=== PATIENT | male | born 1960 | race Caucasian/White ===

== ENCOUNTER 2017-02-14 04:13 | Inpatient (IN) | payer OTHER ==
[2017-02-14] MEDS: HYDROmorphone 2 MG/ML Syringe IVPUSH PRN ×5 (04:28→23:58)
[2017-02-14] MEDS ORDERED: Ondansetron 4 MG/2 ML SDV IVPUSH ONE (04:32)
[2017-02-14] MEDS ORDERED: Ondansetron 4 MG/2 ML SDV ONE (04:33)
[2017-02-14] MEDS: Sodium Chloride 0.9% 1,000 ML IV SCH ×3 (04:35→18:49)
--- NOTE | 2017-02-14 04:36 | EDM.PDOC ---
ED HPI GENERAL MEDICAL PROBLEM - General Chief Complaint: Back Pain or Injury Stated Complaint: DEHYDRATION Time Seen by Provider: 02/14/17 04:28 Source of Information: Reports: Patient, RN - History of Present Illness INITIAL COMMENTS - FREE TEXT/NARRATIVE: He presents saying that he has severe back cramps. He states that it has been going on x 16 hours. He states " it is because I have been out in the sun all day and I am dehydrated". He states that he is short of breath mainly because his back hurts so much that it hurts to breath. Middle Back/More Right Sided Pain Score (Numeric/FACES): 8 - Related Data Allergies Allergy/AdvReac Type Severity Reaction Status Date / Time No Known Allergies Allergy Verified 02/14/17 04:39 Home Meds: Home Meds . [No Known Home Meds] 07/05/14 [History] Past Medical History - Past Health History Medical/Surgical History: Denies Medical/Surgical History Social & Family History - Tobacco Use Years of Tobacco use: 30 - Alcohol Use Days Per Week of Alcohol Use: 0 - Recreational Drug Use Recreational Drug Use: No ED ROS GENERAL - Review of Systems Review Of Systems: See Below Respiratory: Reports: Shortness of Breath. Denies: Cough Cardiovascular: Denies: Chest Pain GI/Abdominal: Denies: Abdominal Pain ED EXAM, GENERAL - Physical Exam Exam: See Below Exam Limited By: Other (slightly agitated; restless; distressed) General Appearance: Alert, Moderate Distress Nose: Normal Inspection Throat/Mouth: Normal Lips Head: Atraumatic Respiratory/Chest: No Respiratory Distress, Lungs Clear, Normal Breath Sounds, Other (decreased tidal volume; splinting) Cardiovascular: Regular Rate, Rhythm, No Murmur GI/Abdominal: Soft, Guarding. No: Rebound, Tender Rectal (Males) Exam: Deferred Neurological: Alert Psychiatric: No: Tearful Course - Vital Signs Last Recorded V/S: Last Vital Signs Temp 95.4 F 02/14/17 06:58 Pulse 108 H 02/14/17 06:58 Resp 18 02/14/17 06:58 BP 122/80 02/14/17 06:58 Pulse Ox 94 L 02/14/17 06:58 - Orders/Labs/Meds Orders: Active Orders 24 hr Category Date Time Status EKG Documentation Completion [RC] STAT Care 02/14/17 04:27 Active Ang Abdomen [CT] Stat Exams 02/14/17 04:27 Taken Ang Chest [CT] Stat Exams 02/14/17 04:27 Taken CXR [Chest 1V Frontal] [CR] Stat Exams 02/14/17 04:26 Taken CULTURE BLOOD [BC] Stat Lab 02/14/17 05:30 Received CULTURE BLOOD [BC] Stat Lab 02/14/17 05:34 Received CULTURE URINE [RM] Stat Lab 02/14/17 06:07 Received HYDROmorphone [Dilaudid] Med 02/14/17 04:24 Active 2 mg IVPUSH Q2H PRN Sodium Chloride 0.9% [Normal Saline] 1,000 ml Med 02/14/17 04:30 Active IV ASDIRECTED Sodium Chloride 0.9% [Normal Saline] 1,000 ml Med 02/14/17 04:45 Active IV ASDIRECTED Blood Culture x2 Reflex Set [OM.PC] Stat Oth 02/14/17 05:10 Ordered Medication Orders Hydromorphone HCl (Dilaudid) 2 mg IVPUSH Q2H PRN PRN Reason: Pain Last Admin: 02/14/17 04:28 Dose: 2 mg Sodium Chloride (Normal Saline) 1,000 mls @ 150 mls/hr IV ASDIRECTED LACI Last Admin: 02/14/17 04:35 Dose: 150 mls/hr Sodium Chloride (Normal Saline) 1,000 mls @ 999 mls/hr IV ASDIRECTED LACI Last Admin: 02/14/17 04:30 Dose: 999 mls/hr Labs: Laboratory Tests 02/14/17 02/14/17 02/14/17 Range/Units 04:20 04:20 04:20 WBC 31.29 H (4.0-11.0) K/uL RBC 5.33 (4.50-5.90) M/uL Hgb 16.3 (13.0-17.0) g/dL Hct 48.1 (38.0-50.0) % MCV 90.2 (80.0-98.0) fL MCH 30.6 (27.0-32.0) pg MCHC 33.9 (31.0-37.0) g/dL RDW Std Deviation 43.5 (28.0-62.0) fl RDW Coeff of Naga 13 (11.0-15.0) % Plt Count 211 (150-400) K/uL MPV 10.40 (7.40-12.00) fL Add Manual Diff YES Neutrophils % (Manual) 78 (48.0-80.0) % Band Neutrophils % 3 % Lymphocytes % (Manual) 11 L (16.0-40.0) % Monocytes % (Manual) 8 (0.0-15.0) % Nucleated RBC % 0.0 /100WBC Absolute Seg Neuts 24.4 Band Neutrophils # 0.9 Lymphocytes # (Manual) 3.4 Monocytes # (Manual) 2.5 Nucleated RBCs # 0 K/uL D-Dimer, Quantitative 0.82 H (0.0-0.52) mg/LFEU Sodium 142 (136-146) mmol/L Potassium 3.5 (3.5-5.1) mmol/L Chloride 106 (98-110) mmol/L Carbon Dioxide 22 (21-31) mmol/L BUN 12 (6.0-23.0) mg/dL Creatinine 1.4 (0.6-1.5) mg/dL Est Cr Clr Drug Dosing TNP Estimated GFR (MDRD) 52.4 ml/min Glucose 169 H (60-110) mg/dL Calcium 9.6 (8.8-10.8) mg/dL Magnesium 1.5 (1.5-2.3) mEq/L Total Bilirubin 1.1 (0.1-1.5) mg/dL AST 22 (5-40) IU/L ALT 24 (8-54) IU/L Alkaline Phosphatase 72 (40-150) Creatine Kinase (9-236) IU/L Troponin I (0.0-0.29) NG/ML B-Natriuretic Peptide (<100) PG/ML Total Protein 7.6 (6.0-8.0) g/dL Albumin 4.0 (3.5-5.0) g/dL Globulin 3.6 H (2.0-3.5) g/dL Albumin/Globulin Ratio 1.1 L (1.3-2.8) Lipase 15 (7-80) U/L Urine Color Urine Appearance Urine pH (5.0-8.0) Ur Specific Maxwell (1.001-1.035) Urine Protein (NEGATIVE) mg/dL Urine Glucose (UA) (NEGATIVE) mg/dL Urine Ketones (NEGATIVE) mg/dL Urine Occult Blood (NEGATIVE) Urine Nitrite (NEGATIVE) Urine Bilirubin (NEGATIVE) Urine Urobilinogen (<2.0) EU/dL Ur Leukocyte Esterase (NEGATIVE) Urine RBC (0-2/HPF) Urine WBC (0-5/HPF) Ur Epithelial Cells (NONE-FEW) Urine Bacteria (NEGATIVE) Urine Mucus (NONE-MOD) Urine Opiates Screen (NEGATIVE) Ur Oxycodone Screen (NEGATIVE) Urine Methadone Screen (NEGATIVE) Ur Barbiturates Screen (NEGATIVE) Ur Phencyclidine Scrn (NEGATIVE) Ur Amphetamine Screen (NEGATIVE) U Methamphetamines Scrn (NEGATIVE) U Benzodiazepines Scrn (NEGATIVE) U Cocaine Metab Screen (NEGATIVE) U Marijuana (THC) Screen (NEGATIVE) 02/14/17 02/14/17 02/14/17 Range/Units 04:20 04:20 04:20 WBC (4.0-11.0) K/uL RBC (4.50-5.90) M/uL Hgb (13.0-17.0) g/dL Hct (38.0-50.0) % MCV (80.0-98.0) fL MCH (27.0-32.0) pg MCHC (31.0-37.0) g/dL RDW Std Deviation (28.0-62.0) fl RDW Coeff of Naga (11.0-15.0) % Plt Count (150-400) K/uL MPV (7.40-12.00) fL Add Manual Diff Neutrophils % (Manual) (48.0-80.0) % Band Neutrophils % % Lymphocytes % (Manual) (16.0-40.0) % Monocytes % (Manual) (0.0-15.0) % Nucleated RBC % /100WBC Absolute Seg Neuts Band Neutrophils # Lymphocytes # (Manual) Monocytes # (Manual) Nucleated RBCs # K/uL D-Dimer, Quantitative (0.0-0.52) mg/LFEU Sodium (136-146) mmol/L Potassium (3.5-5.1) mmol/L Chloride (98-110) mmol/L Carbon Dioxide (21-31) mmol/L BUN (6.0-23.0) mg/dL Creatinine (0.6-1.5) mg/dL Est Cr Clr Drug Dosing Estimated GFR (MDRD) ml/min Glucose (60-110) mg/dL Calcium (8.8-10.8) mg/dL Magnesium (1.5-2.3) mEq/L Total Bilirubin (0.1-1.5) mg/dL AST (5-40) IU/L ALT (8-54) IU/L Alkaline Phosphatase (40-150) Creatine Kinase 168 (9-236) IU/L Troponin I < 0.10 (0.0-0.29) NG/ML B-Natriuretic Peptide 82 (<100) PG/ML Total Protein (6.0-8.0) g/dL Albumin (3.5-5.0) g/dL Globulin (2.0-3.5) g/dL Albumin/Globulin Ratio (1.3-2.8) Lipase (7-80) U/L Urine Color Urine Appearance Urine pH (5.0-8.0) Ur Specific Maxwell (1.001-1.035) Urine Protein (NEGATIVE) mg/dL Urine Glucose (UA) (NEGATIVE) mg/dL Urine Ketones (NEGATIVE) mg/dL Urine Occult Blood (NEGATIVE) Urine Nitrite (NEGATIVE) Urine Bilirubin (NEGATIVE) Urine Urobilinogen (<2.0) EU/dL Ur Leukocyte Esterase (NEGATIVE) Urine RBC (0-2/HPF) Urine WBC (0-5/HPF) Ur Epithelial Cells (NONE-FEW) Urine Bacteria (NEGATIVE) Urine Mucus (NONE-MOD) Urine Opiates Screen (NEGATIVE) Ur Oxycodone Screen (NEGATIVE) Urine Methadone Screen (NEGATIVE) Ur Barbiturates Screen (NEGATIVE) Ur Phencyclidine Scrn (NEGATIVE) Ur Amphetamine Screen (NEGATIVE) U Methamphetamines Scrn (NEGATIVE) U Benzodiazepines Scrn (NEGATIVE) U Cocaine Metab Screen (NEGATIVE) U Marijuana (THC) Screen (NEGATIVE) 02/14/17 02/14/17 Range/Units 06:07 06:07 WBC (4.0-11.0) K/uL RBC (4.50-5.90) M/uL Hgb (13.0-17.0) g/dL Hct (38.0-50.0) % MCV (80.0-98.0) fL MCH (27.0-32.0) pg MCHC (31.0-37.0) g/dL RDW Std Deviation (28.0-62.0) fl RDW Coeff of Naga (11.0-15.0) % Plt Count (150-400) K/uL MPV (7.40-12.00) fL Add Manual Diff Neutrophils % (Manual) (48.0-80.0) % Band Neutrophils % % Lymphocytes % (Manual) (16.0-40.0) % Monocytes % (Manual) (0.0-15.0) % Nucleated RBC % /100WBC Absolute Seg Neuts Band Neutrophils # Lymphocytes # (Manual) Monocytes # (Manual) Nucleated RBCs # K/uL D-Dimer, Quantitative (0.0-0.52) mg/LFEU Sodium (136-146) mmol/L Potassium (3.5-5.1) mmol/L Chloride (98-110) mmol/L Carbon Dioxide (21-31) mmol/L BUN (6.0-23.0) mg/dL Creatinine (0.6-1.5) mg/dL Est Cr Clr Drug Dosing Estimated GFR (MDRD) ml/min Glucose (60-110) mg/dL Calcium (8.8-10.8) mg/dL Magnesium (1.5-2.3) mEq/L Total Bilirubin (0.1-1.5) mg/dL AST (5-40) IU/L ALT (8-54) IU/L Alkaline Phosphatase (40-150) Creatine Kinase (9-236) IU/L Troponin I (0.0-0.29) NG/ML B-Natriuretic Peptide (<100) PG/ML Total Protein (6.0-8.0) g/dL Albumin (3.5-5.0) g/dL Globulin (2.0-3.5) g/dL Albumin/Globulin Ratio (1.3-2.8) Lipase (7-80) U/L Urine Color YELLOW Urine Appearance CLEAR Urine pH 6.0 (5.0-8.0) Ur Specific Maxwell 1.020 (1.001-1.035) Urine Protein 30 (NEGATIVE) mg/dL Urine Glucose (UA) NEGATIVE (NEGATIVE) mg/dL Urine Ketones 15 H (NEGATIVE) mg/dL Urine Occult Blood NEGATIVE (NEGATIVE) Urine Nitrite NEGATIVE (NEGATIVE) Urine Bilirubin NEGATIVE (NEGATIVE) Urine Urobilinogen 1.0 (<2.0) EU/dL Ur Leukocyte Esterase NEGATIVE (NEGATIVE) Urine RBC NONE SEEN (0-2/HPF) Urine WBC 0-3 (0-5/HPF) Ur Epithelial Cells RARE (NONE-FEW) Urine Bacteria RARE (NEGATIVE) Urine Mucus LIGHT (NONE-MOD) Urine Opiates Screen NEGATIVE (NEGATIVE) Ur Oxycodone Screen NEGATIVE (NEGATIVE) Urine Methadone Screen NEGATIVE (NEGATIVE) Ur Barbiturates Screen NEGATIVE (NEGATIVE) Ur Phencyclidine Scrn NEGATIVE (NEGATIVE) Ur Amphetamine Screen NEGATIVE (NEGATIVE) U Methamphetamines Scrn NEGATIVE (NEGATIVE) U Benzodiazepines Scrn NEGATIVE (NEGATIVE) U Cocaine Metab Screen NEGATIVE (NEGATIVE) U Marijuana (THC) Screen NEGATIVE (NEGATIVE) Meds: Medications Generic Name Dose Route Start Last Admin Trade Name Freq PRN Reason Stop Dose Admin Hydromorphone HCl 2 mg 02/14/17 04:24 02/14/17 04:28 Dilaudid IVPUSH 2 mg Q2H PRN Administration Pain Sodium Chloride 1,000 mls @ 150 mls/hr 02/14/17 04:30 02/14/17 04:35 Normal Saline IV 150 mls/hr ASDIRECTED LACI Administration Sodium Chloride 1,000 mls @ 999 mls/hr 02/14/17 04:45 02/14/17 04:30 Normal Saline IV 999 mls/hr ASDIRECTED LACI Administration Discontinued Medications Generic Name Dose Route Start Last Admin Trade Name Freq PRN Reason Stop Dose Admin Piperacillin Sod/Tazobactam 50 mls @ 100 mls/hr 02/14/17 05:10 02/14/17 06:04 Sod 3.375 gm/ Sodium Chloride IV 02/14/17 05:39 100 mls/hr ONETIME ONE Administration Iopamidol 100 ml 02/14/17 06:00 02/14/17 06:01 Isovue-300 (61%) IVPUSH 02/14/17 06:01 100 ml ONETIME ONE Administration Ondansetron HCl 4 mg 02/14/17 04:32 02/14/17 04:34 Zofran IVPUSH 02/14/17 04:33 4 mg ONETIME ONE Administration Ondansetron HCl Confirm 02/14/17 04:33 02/14/17 05:04 Zofran Administered 02/14/17 04:34 Not Given Dose 4 mg .ROUTE .STK-MED ONE Departure - Departure Time of Disposition: 07:28 Disposition: Admitted As Inpatient 66 Condition: Fair Clinical Impression: Sepsis, Pneumonia - Discharge Information - My Orders Last 24 Hours: My Active Orders 02/14/17 04:24 HYDROmorphone [Dilaudid] 2 mg IVPUSH Q2H PRN 02/14/17 04:26 CXR [Chest 1V Frontal] [CR] Stat 02/14/17 04:27 EKG Documentation Completion [RC] STAT Ang Abdomen [CT] Stat Ang Chest [CT] Stat 02/14/17 04:30 Sodium Chloride 0.9% [Normal Saline] 1,000 ml IV ASDIRECTED 02/14/17 04:45 Sodium Chloride 0.9% [Normal Saline] 1,000 ml IV ASDIRECTED 02/14/17 05:10 Blood Culture x2 Reflex Set [OM.PC] Stat 02/14/17 05:30 CULTURE BLOOD [BC] Stat 02/14/17 05:34 CULTURE BLOOD [BC] Stat 02/14/17 06:07 CULTURE URINE [RM] Stat - Assessment/Plan Last 24 Hours: My Active Orders 02/14/17 04:24 HYDROmorphone [Dilaudid] 2 mg IVPUSH Q2H PRN 02/14/17 04:26 CXR [Chest 1V Frontal] [CR] Stat 02/14/17 04:27 EKG Documentation Completion [RC] STAT Ang Abdomen [CT] Stat Ang Chest [CT] Stat 02/14/17 04:30 Sodium Chloride 0.9% [Normal Saline] 1,000 ml IV ASDIRECTED 02/14/17 04:45 Sodium Chloride 0.9% [Normal Saline] 1,000 ml IV ASDIRECTED 02/14/17 05:10 Blood Culture x2 Reflex Set [OM.PC] Stat 02/14/17 05:30 CULTURE BLOOD [BC] Stat 02/14/17 05:34 CULTURE BLOOD [BC] Stat 02/14/17 06:07 CULTURE URINE [RM] Stat
[2017-02-14] MEDS ORDERED: Sodium Chloride 0.9% 1,000 ML IV SCH (04:45)
[2017-02-14 04:54] LABS: CHLORIDE,CL 106 mmol/L (98-110); SODIUM,NA 142 mmol/L (136-146)
[2017-02-14] MEDS ORDERED: Piperacillin/Tazobactam 3.375 GM in Sodium Chloride 0.9% 50 ML IV ONE (05:10)
[2017-02-14] MEDS ORDERED: Iopamidol 612 MG/ML 100 ML Bottle IVPUSH ONE (06:00)
[2017-02-14] MEDS ORDERED: Levofloxacin/Dextrose 5%-Water 750 MG in Premix Bag 1 BAG IV ONE (07:28)
[2017-02-14] MEDS ORDERED: Temazepam 15 MG Cap PO PRN (07:30)
[2017-02-14] MEDS ORDERED: Nicotine 21 MG/24 Hr Patch TRDERM PRN (07:30)
[2017-02-14] MEDS ORDERED: Ondansetron 4 MG/2 ML SDV IVPUSH PRN (07:30)
[2017-02-14] MEDS ORDERED: Bisacodyl 5 MG Tab PO PRN (07:30)
[2017-02-14] MEDS ORDERED: Ketorolac 30 MG/ML SDV IVPUSH ONE (07:31)
[2017-02-14] MEDS: Docusate Sodium 100 MG Cap PO SCH ×2 (08:38→21:30)
--- NOTE | 2017-02-14 09:24 | PCM.HP ---
H&P History of Present Illness - General Date of Service: 02/14/17 Admit Problem/Dx: Admission Diagnosis/Problem Admission Diagnosis/Problem Pneumonia - History of Present Illness Initial Comments - Free Text/Narative: 56 yo male otherwise healthy admitted for right lower lobe pneumonia. 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 He had dry heaves and vomited severely which caused his right lower back pain, very sob, dizzzy. He did not have cp, palpitations, abdominal pain, dysuria, frequency, urgency,dark urine. He does not smoke, drink ETOH or use illicit drugs. He is ex-marine. In the ED he was tachycardia, tachynpenic, afebrile. Lactate is 3.1, WBC 31. D-dimer 0.82. UA mild elevation of ketones. Utox negative. EKG: sinus tachycardia. CXR right lower lobe pneumonia and chest CTA negative for PE. He was started on IVF, zosyn, levaquin. Middle Back/More Right Sided Pain Score (Numeric/FACES): 3 - Related Data Allergies/Adverse Reactions: Allergies Allergy/AdvReac Type Severity Reaction Status Date / Time No Known Allergies Allergy Verified 02/14/17 04:39 Home Medications: Home Meds . [No Known Home Meds] 07/05/14 [History] Past Medical History - Past Health History Medical/Surgical History: Denies Medical/Surgical History Social & Family History - Family History Family Medical History: Noncontributory - Tobacco Use Smoking Status *Q: Never Smoker Years of Tobacco use: 30 - Alcohol Use Days Per Week of Alcohol Use: 0 - Recreational Drug Use Recreational Drug Use: No H&P Review of Systems - Review of Systems: Review Of Systems: See Below General: Reports: No Symptoms HEENT: Reports: No Symptoms Pulmonary: Reports: No Symptoms Cardiovascular: Reports: No Symptoms Gastrointestinal: Reports: No Symptoms Genitourinary: Reports: No Symptoms Musculoskeletal: Reports: Back Pain Skin: Reports: No Symptoms Psychiatric: Reports: No Symptoms Neurological: Reports: No Symptoms Hematologic/Lymphatic: Reports: No Symptoms Immunologic: Reports: No Symptoms Exam - Exam Exam: See Below - Vital Signs Vital Signs: Last Vital Signs Temp 95.4 F 02/14/17 06:58 Pulse 108 H 02/14/17 06:58 Resp 18 02/14/17 07:45 BP 133/89 02/14/17 07:45 Pulse Ox 95 02/14/17 08:51 Weight: 96.7 kg - Exam General: Alert, Oriented, Cooperative HEENT: Conjunctiva Clear, EOMI Neck: Supple, Trachea Midline Lungs: Clear to Auscultation, Normal Respiratory Effort Cardiovascular: Regular Rate, Regular Rhythm GI/Abdominal Exam: Normal Bowel Sounds, Soft Back Exam: Normal Inspection Extremities: Normal Inspection, Normal Range of Motion Skin: Warm, Dry, Intact Neurological: Cranial Nerves Intact, Reflexes Equal Bilateral Psychiatric: Alert, Normal Affect, Normal Mood - Patient Data Result Diagrams: 02/14/17 04:20 02/14/17 04:20 *Q Meaningful Use (ADM) - VTE *Q VTE Criteria *Q: - Stroke *Q Stroke Criteria *Q: - AMI *Q AMI Criteria *Q: Problem List Initiated/Reviewed/Updated: Yes Orders Last 24hrs: Active Orders 24 hr Category Date Time Status LACTIC ACID,WHOLE BLOOD [BG] Q6H Lab 02/14/17 10:20 Ordered LACTIC ACID,WHOLE BLOOD [BG] Q6H Lab 02/14/17 16:20 Ordered Medication Orders Acetaminophen (Tylenol) 650 mg PO Q4H PRN PRN Reason: Pain (Mild 1-3)/fever Bisacodyl (Dulcolax) 5 mg PO DAILY PRN PRN Reason: Constipation Docusate Sodium (Colace) 100 mg PO BID [facility] Last Admin: 02/14/17 08:38 Dose: 100 mg Heparin Sodium (Porcine) (Heparin Sodium) 5,000 units SUBCUT Q8H [facility] Hydromorphone HCl (Dilaudid) 2 mg IVPUSH Q2H PRN PRN Reason: Pain Last Admin: 02/14/17 07:40 Dose: 2 mg Admin: 02/14/17 04:28 Dose: 2 mg Sodium Chloride (Normal Saline) 1,000 mls @ 150 mls/hr IV ASDIRECTED [facility] Last Admin: 02/14/17 04:35 Dose: 150 mls/hr Sodium Chloride (Normal Saline) 1,000 mls @ 999 mls/hr IV ASDIRECTED [facility] Last Admin: 02/14/17 04:30 Dose: 999 mls/hr Levofloxacin/Dextrose 750 mg/ (Premix) 150 mls @ 100 mls/hr IV Q24H LACI Piperacillin Sod/Tazobactam (Sod 3.375 gm/ Sodium Chloride) 50 mls @ 100 mls/ hr IV Q6H [facility]ACI Nicotine (Habitrol) 21 mg TRDERM DAILY PRN PRN Reason: Other Ondansetron HCl (Zofran) 4 mg IVPUSH Q4H PRN PRN Reason: Nausea Temazepam (Restoril) 15 mg PO BEDTIME PRN PRN Reason: Sleep Assessment/Plan Comment:: 56 yo male admitted for RLL pneumonia continue zosyn and levaquin trend lactate, wbc vss stable. DVT prophylaxsis: heparin consider transferring to floor
[2017-02-14] MEDS: Piperacillin/Tazobactam 3.375 GM in Sodium Chloride 0.9% 50 ML IV SCH ×3 (11:24→23:53)
[2017-02-14] MEDS: Acetaminophen 325 MG Tab PO PRN ×2 (11:25→16:50)
--- NOTE | 2017-02-14 11:46 | CR ---
EXAM DATE: 02/14/17 PATIENT'S AGE: 56 Patient: ZOYA LOVELACE Facility: [place], [place] Site . Site : 1960 Study: XRay Chest [id number]/19/2017 4:44:41 AM Ordering Physician: Doctor Maya Final Report: INDICATION: HYPOXIA TECHNIQUE: Chest 1 view COMPARISON: None FINDINGS: Cardiovascular and mediastinum: Heart size and vasculature are normal in caliber and appearance. Mediastinum is within normal limits. Lungs and pleural space: Right lower lobe consolidation. No sign of pleural effusion. No pneumothorax. Bones and soft tissues: No significant findings. IMPRESSION: Right lower lobe consolidation. Please correlate for signs of pneumonia. Dictated by Padilla Gonzalez MD @ 02/14/2017 4:47:42 AM Dictated by: Padilla Gonzalez MD @ 02/14/2017 04:47:56 (Electronic Signature) Report Signed by Proxy. [facility]
--- NOTE | 2017-02-14 11:54 | CT ---
EXAM DATE: 02/14/17 PATIENT'S AGE: 56 Patient: ZOYA LOVELACE Facility: [place], [place] Site . Site : 1960 Study: CT Chest Angio ABDOMEN [id number]/19/2017 6:07:27 AM Ordering Physician: Doctor Maya Final Report: INDICATION: 56 year-old male. Mid back pain beginning yesterday. Shortness of breath. Vomiting. Muscle spasms. TECHNIQUE: Noncontrast/contrast-enhanced CT of the chest and abdomen performed utilizing the dissection protocol. 100 cc nonionic Isovue-300 administered without complication. FINDINGS: The thoracic and abdominal aorta are of normal caliber without aneurysm or dissection. Minimal vascular calcification within the iliac arteries. Trace coronary artery calcification. CT chest: Right lower lobe infiltrate with volume loss and a trace amount of pleural fluid. This may reflect an infectious or inflammatory type process. Minor atelectasis or less likely infiltrate at the extreme left lung base. No pericardial effusion. The included thyroid gland is normal. The trachea and mainstem bronchi are patent and clear. No thoracic lymphadenopathy. No acute rib or sternal fracture identified. CT of the abdomen: There is a normal-appearing liver, spleen, pancreas, gallbladder, and adrenal glands. Tiny left renal cyst superiorly. The larger left renal cyst inferolaterally. No solid renal masses or obstruction. 3 millimeter nonobstructing stone lower pole right kidney. The stomach and duodenum are largely decompressed but grossly unremarkable. The included small and large bowel are within normal limits. The included lumbar spine and upper pelvis are within normal limits. IMPRESSION: 1. No thoracic or abdominal aortic aneurysm or dissection. 2. Right lower lobe infiltrate with atelectasis and trace pleural fluid. This may be infectious or inflammatory in nature. 3. Minimal atelectasis at the left lung base. 4. Please note the examination is not performed as a pulmonary embolism protocol. However there is no central main pulmonary arterial filling defects. 5. Left renal cysts. 3 mm nonobstructing stone within the lower pole of the right kidney. Dictated by Sai David MD @ 02/14/2017 7:13:35 AM Dictated by: Sai David MD @ 02/14/2017 07:13:46 (Electronic Signature) Report Signed by Proxy. MTDD
--- NOTE | 2017-02-14 11:54 | CT ---
EXAM DATE: 02/14/17 PATIENT'S AGE: 56 Patient: ZOYA LOVELACE Facility: [place], [place] Site . Site : 1960 Study: CT Chest Angio ABDOMEN [id number]/19/2017 6:07:27 AM Ordering Physician: Doctor Maya Final Report: INDICATION: 56 year-old male. Mid back pain beginning yesterday. Shortness of breath. Vomiting. Muscle spasms. TECHNIQUE: Noncontrast/contrast-enhanced CT of the chest and abdomen performed utilizing the dissection protocol. 100 cc nonionic Isovue-300 administered without complication. FINDINGS: The thoracic and abdominal aorta are of normal caliber without aneurysm or dissection. Minimal vascular calcification within the iliac arteries. Trace coronary artery calcification. CT chest: Right lower lobe infiltrate with volume loss and a trace amount of pleural fluid. This may reflect an infectious or inflammatory type process. Minor atelectasis or less likely infiltrate at the extreme left lung base. No pericardial effusion. The included thyroid gland is normal. The trachea and mainstem bronchi are patent and clear. No thoracic lymphadenopathy. No acute rib or sternal fracture identified. CT of the abdomen: There is a normal-appearing liver, spleen, pancreas, gallbladder, and adrenal glands. Tiny left renal cyst superiorly. The larger left renal cyst inferolaterally. No solid renal masses or obstruction. 3 millimeter nonobstructing stone lower pole right kidney. The stomach and duodenum are largely decompressed but grossly unremarkable. The included small and large bowel are within normal limits. The included lumbar spine and upper pelvis are within normal limits. IMPRESSION: 1. No thoracic or abdominal aortic aneurysm or dissection. 2. Right lower lobe infiltrate with atelectasis and trace pleural fluid. This may be infectious or inflammatory in nature. 3. Minimal atelectasis at the left lung base. 4. Please note the examination is not performed as a pulmonary embolism protocol. However there is no central main pulmonary arterial filling defects. 5. Left renal cysts. 3 mm nonobstructing stone within the lower pole of the right kidney. Dictated by Sai David MD @ 02/14/2017 7:13:35 AM Dictated by: Sai David MD @ 02/14/2017 07:13:46 (Electronic Signature) Report Signed by Proxy. [facility]TD[facility]
[2017-02-14] MEDS: Heparin Sodium 5,000 Units/ML Vial SUBCUT SCH ×2 (14:18→21:19)
[2017-02-15] MEDS: Acetaminophen 325 MG Tab PO PRN (00:41)
[2017-02-15] MEDS: Sodium Chloride 0.9% 1,000 ML IV SCH ×3 (02:14→17:39)
[2017-02-15 05:37] LABS: CHLORIDE,CL 110 mmol/L (98-110); SODIUM,NA 139 mmol/L (136-146)
[2017-02-15] MEDS: Piperacillin/Tazobactam 3.375 GM in Sodium Chloride 0.9% 50 ML IV SCH ×4 (05:53→23:05)
[2017-02-15] MEDS: HYDROmorphone 2 MG/ML Syringe IVPUSH PRN ×2 (05:59→08:17)
[2017-02-15] MEDS: Heparin Sodium 5,000 Units/ML Vial SUBCUT SCH ×3 (06:06→22:55)
[2017-02-15] MEDS: Levofloxacin/Dextrose 5%-Water 750 MG in Premix Bag 1 BAG IV SCH (06:41)
[2017-02-15] MEDS ORDERED: Morphine 2 MG/ML Syringe IVPUSH ONE (07:54)
[2017-02-15] MEDS: Docusate Sodium 100 MG Cap PO SCH ×2 (08:17→20:31)
--- NOTE | 2017-02-15 09:17 | PCM.PN ---
- General Info Date of Service: 02/15/17 Subjective Update: did not sleep well last night due to pain. He has diluadid which is helping. using Incentive spirometry Functional Status: Reports: Tolerating Diet, Incentive Spirometry - Review of Systems General: Reports: No Symptoms HEENT: Reports: No Symptoms Pulmonary: Reports: Pleuritic Chest Pain Cardiovascular: Reports: No Symptoms Gastrointestinal: Reports: No Symptoms Genitourinary: Reports: No Symptoms Musculoskeletal: Reports: Back Pain Skin: Reports: No Symptoms Neurological: Reports: No Symptoms Psychiatric: Reports: No Symptoms - Patient Data Vitals - most recent: Last Vital Signs Temp 98.9 F 02/15/17 07:59 Pulse 99 02/15/17 07:59 Resp 20 02/15/17 07:59 BP 95/52 L 02/15/17 04:00 Pulse Ox 91 L 02/15/17 08:00 Weight - most recent: 96.7 kg I&O - last 24 hours: Intake & Output 02/14/17 02/15/17 02/15/17 22:59 06:59 14:59 Intake Total 1549 1700 Output Total 350 550 Balance 1199 1150 Lab Results last 24 hrs: Laboratory Results - last 24 hr 02/14/17 02/15/17 02/15/17 Range/Units 10:10 04:58 04:58 WBC 17.43 H (4.0-11.0) K/uL RBC 4.46 L (4.50-5.90) M/uL Hgb 13.3 (13.0-17.0) g/dL Hct 40.7 (38.0-50.0) % MCV 91.3 (80.0-98.0) fL MCH 29.8 (27.0-32.0) pg MCHC 32.7 (31.0-37.0) g/dL RDW Std Deviation 45.1 (28.0-62.0) fl RDW Coeff of Naga 14 (11.0-15.0) % Plt Count 183 (150-400) K/uL MPV 10.10 (7.40-12.00) fL Neut % (Auto) 86.6 H (48.0-80.0) % Lymph % (Auto) 8.1 L (16.0-40.0) % Keith % (Auto) 5.1 (0.0-15.0) % Eos % (Auto) 0.1 (0.0-7.0) % Baso % (Auto) 0.1 (0.0-1.5) % Neut # (Auto) 15.1 H (1.4-5.7) K/uL Lymph # (Auto) 1.4 (0.6-2.4) K/uL Keith # (Auto) 0.9 H (0.0-0.8) K/uL Eos # (Auto) 0.0 (0.0-0.7) K/uL Baso # (Auto) 0.0 (0.0-0.1) K/uL Nucleated RBC % 0.0 /100WBC Nucleated RBCs # 0 K/uL Lactate 1.5 (0.20-2.00) mmol/L Sodium 139 (136-146) mmol/L Potassium 3.9 (3.5-5.1) mmol/L Chloride 110 (98-110) mmol/L Carbon Dioxide 22 (21-31) mmol/L BUN 16 (6.0-23.0) mg/dL Creatinine 1.0 (0.6-1.5) mg/dL Est Cr Clr Drug Dosing 90.66 mL/min Estimated GFR (MDRD) > 60.0 ml/min Glucose 111 H (60-110) mg/dL Calcium 7.9 L (8.8-10.8) mg/dL Total Bilirubin 0.9 (0.1-1.5) mg/dL AST 22 (5-40) IU/L ALT 21 (8-54) IU/L Alkaline Phosphatase 57 (40-150) Total Protein 5.3 L (6.0-8.0) g/dL Albumin 2.9 L (3.5-5.0) g/dL Globulin 2.4 (2.0-3.5) g/dL Albumin/Globulin Ratio 1.2 L (1.3-2.8) Med Orders - Current: Current Medications Acetaminophen (Tylenol) 650 mg PO Q4H PRN PRN Reason: Pain (Mild 1-3)/fever Last Admin: 02/15/17 00:41 Dose: 650 mg Hydrocodone Bitart/Acetaminophen ([place] 325-10 Mg) 1 tab PO Q4H PRN PRN Reason: Pain (severe 7-10) Bisacodyl (Dulcolax) 5 mg PO DAILY PRN PRN Reason: Constipation Docusate Sodium (Colace) 100 mg PO BID [facility] Last Admin: 02/15/17 08:17 Dose: 100 mg Heparin Sodium (Porcine) (Heparin Sodium) 5,000 units SUBCUT Q8H [facility] Last Admin: 02/15/17 06:06 Dose: 5,000 units Hydromorphone HCl (Dilaudid) 0 mg IVPUSH Q2H PRN PRN Reason: Pain Last Admin: 02/15/17 08:17 Dose: 2 mg Sodium Chloride (Normal Saline) 1,000 mls @ 150 mls/hr IV ASDIRECTED [facility] Last Admin: 02/15/17 02:14 Dose: 150 mls/hr Levofloxacin/Dextrose 750 mg/ (Premix) 150 mls @ 100 mls/hr IV Q24H [facility] Last Admin: 02/15/17 06:41 Dose: 100 mls/hr Piperacillin Sod/Tazobactam (Sod 3.375 gm/ Sodium Chloride) 50 mls @ 100 mls/ hr IV Q6H [facility] Last Admin: 02/15/17 05:53 Dose: 100 mls/hr Nicotine (Habitrol) 21 mg TRDERM DAILY PRN PRN Reason: Other Ondansetron HCl (Zofran) 4 mg IVPUSH Q4H PRN PRN Reason: Nausea Temazepam (Restoril) 15 mg PO BEDTIME PRN PRN Reason: Sleep Discontinued Medications Hydromorphone HCl (Dilaudid) 2 mg IVPUSH Q2H PRN PRN Reason: Pain Last Admin: 02/14/17 07:40 Dose: 2 mg Sodium Chloride (Normal Saline) 1,000 mls @ 999 mls/hr IV ASDIRECTED [facility] Last Admin: 02/14/17 04:30 Dose: 999 mls/hr Piperacillin Sod/Tazobactam (Sod 3.375 gm/ Sodium Chloride) 50 mls @ 100 mls/ hr IV ONETIME ONE Stop: 02/14/17 05:39 Last Admin: 02/14/17 06:04 Dose: 100 mls/hr Levofloxacin/Dextrose 750 mg/ (Premix) 150 mls @ 100 mls/hr IV ONETIME ONE Stop: 02/14/17 08:57 Last Admin: 02/14/17 07:44 Dose: 100 mls/hr Iopamidol (Isovue-300 (61%)) 100 ml IVPUSH ONETIME ONE Stop: 02/14/17 06:01 Last Admin: 02/14/17 06:01 Dose: 100 ml Ketorolac Tromethamine (Toradol) 30 mg IVPUSH ONETIME ONE Stop: 02/14/17 07:32 Last Admin: 02/14/17 07:38 Dose: 30 mg Morphine Sulfate (Morphine) 2 mg IVPUSH ONETIME ONE Stop: 02/15/17 07:55 Last Admin: 02/15/17 08:43 Dose: Not Given Ondansetron HCl (Zofran) 4 mg IVPUSH ONETIME ONE Stop: 02/14/17 04:33 Last Admin: 02/14/17 04:34 Dose: 4 mg Ondansetron HCl (Zofran) Confirm Administered Dose 4 mg .ROUTE .STK-MED ONE Stop: 02/14/17 04:34 Last Admin: 02/14/17 05:04 Dose: Not Given - Exam Quality Assessment: supplemental oxygen, DVT prophylaxis General: alert, oriented, cooperative HEENT: Pupils equal, EOMI Neck: supple, trachea midline Lungs: Clear to Auscultation, Normal Respiratory Effort Cardiovascular: Regular Rate, Regular Rhythm Back Exam: Normal Inspection, Full Range of Motion Extremities: Normal Inspection, Normal Range of Motion Wound/Incisions: healing well Neurological: no new focal deficit Psy/Mental Status: alert, normal affect, normal mood - Problem List Review Problem List Initiated/Reviewed/Updated: Yes - My Orders Last 24 Hours: My Active Orders 02/14/17 12:16 Transfer Patient (Change bed) [ADT] Routine 02/15/17 08:22 Acetaminophen/HYDROcodone [[place] 325-10 MG] 1 tab PO Q4H PRN - Plan Plan:: 56 yo male admitted for RLL pneumonia continue zosyn and levaquin WBC trending down blood and urine culture negative. continue incentive spirometry Pain: norco prn and diluadid prn DVT prophylaxsis: heparin
[2017-02-15] MEDS: Acetaminophen/HYDROcodone 325-10 MG Tab PO PRN ×2 (09:53→17:46)
[2017-02-15] MEDS: Ibuprofen 800 MG Tab PO SCH ×2 (10:20→17:40)
[2017-02-15] MEDS: Albuterol/Ipratropium 3.0-0.5 MG/3 ML Neb Soln NEB SCH ×2 (13:59→21:29)
[2017-02-16] MEDS: Sodium Chloride 0.9% 1,000 ML IV SCH (02:42)
[2017-02-16] MEDS: Ibuprofen 800 MG Tab PO SCH ×2 (03:16→10:45)
[2017-02-16] MEDS: Acetaminophen/HYDROcodone 325-10 MG Tab PO PRN ×3 (04:22→14:55)
[2017-02-16] MEDS: Piperacillin/Tazobactam 3.375 GM in Sodium Chloride 0.9% 50 ML IV SCH ×2 (05:01→12:04)
[2017-02-16] MEDS: Albuterol/Ipratropium 3.0-0.5 MG/3 ML Neb Soln NEB SCH (05:41)
[2017-02-16] MEDS: Heparin Sodium 5,000 Units/ML Vial SUBCUT SCH ×2 (05:52→14:48)
[2017-02-16 05:58] LABS: CHLORIDE,CL 110 mmol/L (98-110); SODIUM,NA 142 mmol/L (136-146)
[2017-02-16] MEDS: Levofloxacin/Dextrose 5%-Water 750 MG in Premix Bag 1 BAG IV SCH (06:41)
[2017-02-16] MEDS ORDERED: Albuterol/Ipratropium 3.0-0.5 MG/3 ML Neb Soln NEB PRN (07:56)
--- NOTE | 2017-02-16 10:37 | CR ---
EXAM DATE: 02/14/17 PATIENT'S AGE: 56 Patient: ZOYA LOVELACE Facility: [place], [place] Site . Site : 1960 Study: XRay Chest [id number]/21/2017 9:11:50 AM Ordering Physician: Ant Johnson Final Report: INDICATION: Worsening cough HISTORY: Worsening cough. COMPARISON: CT angiogram 02/14/2017. Chest 1 view 02/14/2017. TECHNIQUE: Chest, 2 views. FINDINGS: A large right pleural effusion has developed, with atelectasis or consolidation adjacent to this effusion. The heart size is stable. Pulmonary vasculature centrally is indistinct. There is no pneumothorax. The osseous structures are intact. Central airway is normal. IMPRESSION: 1. Large right pleural effusion with atelectasis or less likely consolidation. 2. This is new when compared to previous. Consider thoracentesis. Dictated by Ino Tavarez MD @ 02/16/2017 9:15:06 AM Dictated by: Ino Tavarez MD @ 02/16/2017 09:15:16 (Electronic Signature) Report Signed by Proxy. [facility]
--- NOTE | 2017-02-16 10:38 | CR ---
EXAM DATE: 02/14/17 PATIENT'S AGE: 56 Patient: ZOYA LOVELACE Facility: [place], [place] Site . Site : 1960 Study: XRay Spine Lumbar [id number]/21/2017 9:12:16 AM Ordering Physician: Ant Johnson Final Report: INDICATION: Right sided back pain. INDICATION: Back pain. TECHNIQUE: Lumbar spine 3 view. COMPARISON: None FINDINGS: Bones: Alignment is normal. No fractures or significant bone lesions. Joints: Disc spaces and facets are unremarkable. Minor osteophytic spurring of the endplates. Soft tissues: Unremarkable. IMPRESSION: Vertebral body heights and alignment are preserved in the lumbar spine. No acute bone abnormality. Dictated by Ino Tavarez MD @ 02/16/2017 9:16:24 AM Dictated by: Ino Tavarez MD @ 02/16/2017 09:16:35 (Electronic Signature) Report Signed by Proxy. [facility]
[2017-02-16] MEDS: Docusate Sodium 100 MG Cap PO SCH (10:45)
[2017-02-16] MEDS ORDERED: Iopamidol 755 MG/ML 500 ML Multipack Bottle IVPUSH STA (11:15)
[2017-02-16 12:33] VITALS: BP 119/67
--- NOTE | 2017-02-16 13:29 | CT ---
EXAM DATE: 02/14/17 PATIENT'S AGE: 56 Patient: ZOYA LOVELACE Facility: [place], [place] Site . Site : 1960 Study: CT Chest [id number]/21/2017 11:37:02 AM Ordering Physician: Ant Johnson Final Report: INDICATION: Right pleural effusion. TECHNIQUE: CT chest was acquired with IV contrast. COMPARISON: February 14, 2017. FINDINGS: Cardiovascular structures: Heart size is normal. Thoracic aorta and main pulmonary artery are normal in caliber. Mediastinum and mariia: There is a mass or airspace consolidation contiguous with the right hilum. Mildly enlarged precarinal lymph node is on image 42. Normal thyroid gland. Lungs and pleura: Large right-sided pleural effusion has significantly increased in size. Small left-sided pleural effusion is new. Significant interval worsening of dense consolidation and collapse of the right lower and middle lobes. There are abnormal areas of low attenuation within the consolidated right lower lobe. Mild left lower lobe atelectasis. Small consolidation in the lingula could represent atelectasis or infiltrate. Chest wall and axilla: No mass or adenopathy. Upper abdomen: Unremarkable. Bones: No significant findings. IMPRESSION: 1. Significant interval increase in size of a large right pleural effusion and dense consolidation of the right lower and middle lobes. Abnormal areas of low attenuation are present within the areas of consolidation. It cannot be determined whether this represents pneumonia with necrosis, dense atelectasis, and/or a neoplastic process. 2. New small left pleural effusion with adjacent atelectasis. 3. Mild atelectasis or small infiltrate is in the lingula. Dictated by Darin Flores MD @ 02/16/2017 12:03:47 PM Dictated by: Darin Flores MD @ 02/16/2017 12:03:52 (Electronic Signature) Report Signed by Proxy. [facility]
--- NOTE | 2017-02-16 14:44 | PCM.DCSUM1 ---
Discharge Summary - Hospital Course Free Text/Narrative:: 56 yo otherwise healthy male admitted for sepsis and right lobar pneumonia. He was not feeling well for 2 weeks. He was tired, coughing, fever, chills, right sided pain. 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 The right sided back pain was intolerable where he came to the ED to get it checked. In the ED, he was febrile, tachycardic and tachypneic blood pressure of 177/115, spo2 85% in RA. WBC 31 and lactate 3.1 . BMP unremarkable. CXR right lobar pneumonia. CTA negative for PE. He was started on [place] oxygen, IVF, levaquin and zosyn. He was admitted to ICU. His lactate came down to normal level and his symptoms improved. He was transferred to the floor. On the the second day of hospital, his wbc trended down to 17. He was still c/o of right sided back pain without midline tenderness. His repeat cxr has revealed increased large right side pleural effusion. Chest CT showed increased right pleural effusion. On bedside ultrasound, the fluid was loculated. He requires higher level of care for possible chest tube placement and possible thoractomy for empyema. Blood culture no growth x 2 days. Urine culture negative. I spoke with Dr. lou in [place] who kindly accepted the patient. He will transferred via ground ambulance for direct inpatient to inpatient transfer. His vital signs are stable. - Discharge Data Discharge Date: 02/16/17 Discharge Disposition: DC/Tfer to Acute Hospital 02 Condition: Fair - Discharge Plan Home Medications: Home Meds Ascorbic Acid [Vitamin C] 1,000 mg PO DAILY 02/14/17 [History] Referrals: PCP,None [Primary Care Provider] - - General Info Date of Service: 02/16/17 - Review of Systems General: Reports: No Symptoms HEENT: Reports: No Symptoms Pulmonary: Reports: Shortness of Breath, Pleuritic Chest Pain, Other (right lower back pain. ) Cardiovascular: Reports: No Symptoms Gastrointestinal: Reports: No Symptoms Genitourinary: Reports: No Symptoms Musculoskeletal: Reports: No Symptoms Skin: Reports: No Symptoms Neurological: Reports: No Symptoms Psychiatric: Reports: No Symptoms - Patient Data Vitals - Most Recent: Last Vital Signs Temp 97.0 F 02/16/17 12:00 Pulse 99 02/16/17 12:00 Resp 20 02/16/17 12:00 BP 119/67 02/16/17 12:00 Pulse Ox 96 02/16/17 12:00 Weight - Most Recent: 96.7 kg I&O - Last 24 hours: Intake & Output 02/15/17 02/16/17 02/16/17 22:59 06:59 14:59 Intake Total 625 1350 50 Output Total 1200 1550 Balance -575 -200 50 Lab Results - Last 24 hrs: Laboratory Results - last 24 hr 02/16/17 02/16/17 Range/Units 04:42 04:42 WBC 17.28 H (4.0-11.0) K/uL RBC 4.54 (4.50-5.90) M/uL Hgb 13.6 (13.0-17.0) g/dL Hct 40.9 (38.0-50.0) % MCV 90.1 (80.0-98.0) fL MCH 30.0 (27.0-32.0) pg MCHC 33.3 (31.0-37.0) g/dL RDW Std Deviation 44.9 (28.0-62.0) fl RDW Coeff of Naga 14 (11.0-15.0) % Plt Count 219 (150-400) K/uL MPV 10.80 (7.40-12.00) fL Neut % (Auto) 88.8 H (48.0-80.0) % Lymph % (Auto) 5.3 L (16.0-40.0) % [place] % (Auto) 5.5 (0.0-15.0) % Eos % (Auto) 0.3 (0.0-7.0) % Baso % (Auto) 0.1 (0.0-1.5) % Neut # (Auto) 15.3 H (1.4-5.7) K/uL Lymph # (Auto) 0.9 (0.6-2.4) K/uL [place] # (Auto) 1.0 H (0.0-0.8) K/uL Eos # (Auto) 0.1 (0.0-0.7) K/uL Baso # (Auto) 0.0 (0.0-0.1) K/uL Nucleated RBC % 0.0 /100WBC Nucleated RBCs # 0 K/uL Sodium 142 (136-146) mmol/L Potassium 3.9 (3.5-5.1) mmol/L Chloride 110 (98-110) mmol/L Carbon Dioxide 21 (21-31) mmol/L BUN 10 (6.0-23.0) mg/dL Creatinine 0.8 (0.6-1.5) mg/dL Est Cr Clr Drug Dosing 113.32 mL/min Estimated GFR (MDRD) > 60.0 ml/min Glucose 100 (60-110) mg/dL Calcium 8.1 L (8.8-10.8) mg/dL SELENA Results - Last 24 hrs: Microbiology 02/16/17 04:50 Gram Stain - Preliminary Sputum - Expectorated Med Orders - Current: Current Medications Acetaminophen (Tylenol) 650 mg PO Q4H PRN PRN Reason: Pain (Mild 1-3)/fever Last Admin: 02/15/17 00:41 Dose: 650 mg Hydrocodone Bitart/Acetaminophen ([place] 325-10 Mg) 1 tab PO Q4H PRN PRN Reason: Pain (severe 7-10) Last Admin: 02/16/17 10:44 Dose: 1 tab Albuterol/Ipratropium (Duoneb 3.0-0.5 Mg/3 Ml) 3 ml NEB Q4HRRT PRN PRN Reason: Dyspnea Bisacodyl (Dulcolax) 5 mg PO DAILY PRN PRN Reason: Constipation Docusate Sodium (Colace) 100 mg PO BID [facility] Last Admin: 02/16/17 10:45 Dose: 100 mg Heparin Sodium (Porcine) (Heparin Sodium) 5,000 units SUBCUT Q8H [facility] Last Admin: 02/16/17 05:52 Dose: 5,000 units Levofloxacin/Dextrose 750 mg/ (Premix) 150 mls @ 100 mls/hr IV Q24H [facility] Last Admin: 02/16/17 06:41 Dose: 100 mls/hr Piperacillin Sod/Tazobactam (Sod 3.375 gm/ Sodium Chloride) 50 mls @ 100 mls/ hr IV Q6H [facility] Last Admin: 02/16/17 12:04 Dose: 100 mls/hr Ibuprofen (Motrin) 800 mg PO Q8H [facility] Last Admin: 02/16/17 10:45 Dose: 800 mg Nicotine (Habitrol) 21 mg TRDERM DAILY PRN PRN Reason: Other Ondansetron HCl (Zofran) 4 mg IVPUSH Q4H PRN PRN Reason: Nausea Temazepam (Restoril) 15 mg PO BEDTIME PRN PRN Reason: Sleep Discontinued Medications Albuterol/Ipratropium (Duoneb 3.0-0.5 Mg/3 Ml) 3 ml NEB Q8HRRT [facility] Last Admin: 02/16/17 05:41 Dose: Not Given Hydromorphone HCl (Dilaudid) 2 mg IVPUSH Q2H PRN PRN Reason: Pain Last Admin: 02/14/17 07:40 Dose: 2 mg Hydromorphone HCl (Dilaudid) 0 mg IVPUSH Q2H PRN PRN Reason: Pain Last Admin: 02/15/17 08:17 Dose: 2 mg Sodium Chloride (Normal Saline) 1,000 mls @ [facility] Admin: 02/15/17 10:21 Dose: 150 mls/hr Sodium Chloride (Normal Saline) 1,000 mls @ 999 [facility] Last Admin: 02/14/17 04:30 Dose: 999 mls/hr Piperacillin Sod/Tazobactam (Sod 3.375 gm/ Sodium Chloride) 50 mls @ 100 mls/ hr IV ONETIME ONE Stop: 02/14/17 05:39 Last Admin: 02/14/17 06:04 Dose: 100 mls/hr Levofloxacin/Dextrose 750 mg/ (Premix) 150 mls @ 100 mls/hr IV ONETIME ONE Stop: 02/14/17 08:57 Last Admin: 02/14/17 07:44 Dose: 100 mls/hr Sodium Chloride (Normal Saline) 1,000 mls @ 125 [facility] Last Admin: 02/16/17 02:42 Dose: 125 mls/hr Iopamidol (Isovue-300 (61%)) 100 ml IVPUSH ONETIME ONE Stop: 02/14/17 06:01 Last Admin: 02/14/17 06:01 Dose: 100 ml Iopamidol (Isovue Multipack-370 (76%)) 75 ml IVPUSH ONETIME STA Stop: 02/16/17 11:16 Last Admin: 02/16/17 11:20 Dose: 75 ml Ketorolac Tromethamine (Toradol) 30 mg IVPUSH ONETIME ONE Stop: 02/14/17 07:32 Last Admin: 02/14/17 07:38 Dose: 30 mg Morphine Sulfate (Morphine) 2 mg IVPUSH ONETIME ONE Stop: 02/15/17 07:55 Last Admin: 02/15/17 08:43 Dose: Not Given Ondansetron HCl (Zofran) 4 mg IVPUSH ONETIME ONE Stop: 02/14/17 04:33 Last Admin: 02/14/17 04:34 Dose: 4 mg Ondansetron HCl (Zofran) Confirm Administered Dose 4 mg .ROUTE .STK-MED ONE Stop: 02/14/17 04:34 Last Admin: 02/14/17 05:04 Dose: Not Given - Exam Quality Assessment: Reports: supplemental oxygen General: Reports: alert, oriented, cooperative, no acute distress HEENT: Reports: Pupils equal, EOMI Neck: Reports: supple, trachea midline Lungs: Reports: Normal Respiratory Effort, Decreased Breath Sounds, Other ( right posterior lower chest pain and tenderness. NO vertebral midline tenderness. ) Cardiovascular: Reports: Regular Rate, Regular Rhythm GI/Abdominal Exam: Normal Bowel Sounds, Soft Extremities: Normal Inspection, Normal Range of Motion Skin: Reports: warm, dry, intact Neurological: Reports: no new focal deficit Psy/Mental Status: Reports: alert, normal affect, normal mood *Q Meaningful Use (DIS) - VTE *Q VTE Criteria *Q: - Stroke *Q Stroke Criteria *Q: - AMI *Q AMI Criteria *Q:
== END 2017-02-16 15:30 | DRG 871 ==
LOC: MW.ED 04:13 → MW.ICU 07:30 → MW.MS 17:14
PROVIDERS: ADMIT Family Medicine; ATTEND Internal Medicine
DX: A41.9 Sepsis, unspecified organism (principal); J18.9 Pneumonia, unspecified organism; J90 Pleural effusion, not elsewhere classified
CPT/HCPCS: 36415; 71010; 71010-26; 71020; 71020-26; 71260; 71260-26; 71275; 71275-26; 72100; 72100-26; 74175; 74175-26; 80048; 80053; 80305; 81001; 82550; 82962; 83605; 83690; 83735; 83880; 84484; 85025; 85379; 87040; 87070; 87086; 87205; 93005; 94664; 96360; 96361; 96365; 96367; 96375; 96376; 99285; 99285-25; A9270-GY; J1170; J1644; J1885; J1956; J2405; J2543; J7040; J7050; Q9967

== ENCOUNTER 2018-11-07 18:09 | Emergency (ER) | payer SELFPAY ==
[2018-11-07] MEDS ORDERED: Aspirin 81 MG Tab.Chew PO ONE (18:15)
[2018-11-07] MEDS ORDERED: Sodium Chloride 0.9% 1,000 ML IV ONE (18:15)
[2018-11-07] MEDS ORDERED: Albuterol/Ipratropium 3.0-0.5 MG/3 ML Neb Soln NEB ONE (18:17)
--- NOTE | 2018-11-07 18:33 | EDM.PDOC ---
ED HPI GENERAL MEDICAL PROBLEM - General Chief Complaint: Chest Pain Stated Complaint: PT HAS DIFFICULTY BREATHING Time Seen by Provider: 11/07/18 18:15 Source of Information: Reports: Patient History Limitations: Reports: No Limitations - History of Present Illness INITIAL COMMENTS - FREE TEXT/NARRATIVE: HISTORY AND PHYSICAL: History of present illness: Patient is a 58-year-old male presents to the ED today with concern of chest pain and cough 4 days. Patient states she has a history of a issues with his lung and he is concerned that his chest pain is similar to as when he had this happen before. Patient states he is unsure why he had a lung issues but that he needed a chest tube and was hospitalized in [place] for a month. Patient states that the chest pain is worse when he coughs and he rates his discomfort a 6 out of 10. Patient states he is also coughing up a greenish mucus which is similar to when he prior had lung concerns. Patient states he's also had a few episodes of dizziness and feels like his "equilibrium is off." Patient isn't really able to quantify what this means other than similarly to being intoxicated. He states these dizzy episodes only last a few seconds. He states his last episode was yesterday. He states that when these episodes occur he does feel nauseous but has not vomited. Patient denies fever, chills, shortness of breath. Denies headache, neck stiff ness, change in vision, syncope, or near syncope. Denies vomiting, abdominal pain, diarrhea, constipation, or dysuria. Has not noted any blood in urine or stool. Patient notes a decrease in appetite but has been eating and drinking appropriately. Review of systems: As per history of present illness and below otherwise all systems reviewed and negative. Past medical history: As per history of present illness and as reviewed below otherwise noncontributory. Surgical history: As per history of present illness and as reviewed below otherwise noncontributory. Social history: See social history for further information Family history: As per history of present illness and as reviewed below otherwise noncontributory. Physical exam: General: Patient is alert, oriented, and in no acute distress. Patient sitting comfortably on exam table. HEENT: Atraumatic, normocephalic, pupils equal and reactive bilaterally, negative for conjunctival pallor or scleral icterus, mucous membranes moist, TMs normal bilaterally, throat clear, neck supple, nontender, trachea midline. No drooling or trismus noted. No meningeal signs. No hot potato voice noted. Lungs: Minimal wheezing heard in the right lung base, left lung is clear to auscultation, breath sounds equal bilaterally, chest nontender. Heart: S1S2, regular rate and rhythm without overt murmur Abdomen: Soft, nondistended, nontender. Negative for masses or hepatosplenomegaly. Negative for costovertebral tenderness. Pelvis: Stable nontender. Genitourinary: Deferred. Rectal: Deferred. Skin: Intact, warm, dry. No lesions or rashes noted. Extremities: Atraumatic, negative for cords or calf pain. Neurovascular unremarkable. Neuro: Awake, alert, oriented. Cranial nerves II through XII unremarkable. Cerebellum unremarkable. Motor and sensory unremarkable throughout. Exam nonfocal. Notes: I reviewed the patient's from February 14, 2017 which showed significant pleural effusion and dense consolidation of the right lower and middle lobes. Chest x-ray today shows some right pleural thickening but no consolidation or effusion. Offered admission for observation but patient declines at this time. Discussed the importance of follow-up with his primary care provider. Supportive care measures were reviewed and discussed. Voices understanding and is agreeable to plan of care. Denies any further questions or concerns at this time. Diagnostics: CBC, CMP, EKG, chest x-ray, troponin, influenza, orthostatic vitals Therapeutics: DuoNeb, saline, aspirin Prescription: Medrol dose pack, Proair inhaler Impression: Bronchitis Plan: 1. Take medications as prescribed. You can alternate ibuprofen and Tylenol as directed for pain and discomfort. 2. Follow-up with your primary care provider as discussed. 3. Return to the ED as needed and as discussed. Definitive disposition and diagnosis as appropriate pending reevaluation and review of above. chest Pain Score (Numeric/FACES): 9 - Related Data Allergies Allergy/AdvReac Type Severity Reaction Status Date / Time No Known Allergies Allergy Verified 11/07/18 18:10 Home Meds: Home Meds Ascorbic Acid [Vitamin C] 1,000 mg PO DAILY 02/14/17 [History] Multivitamin [Multivitamins] 1 each PO DAILY 11/07/18 [History] Past Medical History - Past Health History Medical/Surgical History: Denies Medical/Surgical History HEENT History: Reports: None Cardiovascular History: Reports: None Other Respiratory History: hx chest tube, pt reports being flown to [place] and being admited for 3weeks, unsure of diagnosis Gastrointestinal History: Reports: None Genitourinary History: Reports: None Musculoskeletal History: Reports: None Neurological History: Reports: None Psychiatric History: Reports: None Endocrine/Metabolic History: Reports: None Hematologic History: Reports: None Oncologic (Cancer) History: Reports: None Dermatologic History: Reports: None - Infectious Disease History Infectious Disease History: Reports: Chicken Pox - Past Surgical History Male Surgical History: Reports: None Social & Family History - Family History Family Medical History: Noncontributory - Tobacco Use Smoking Status *Q: Never Smoker - Caffeine Use Caffeine Use: Reports: Coffee, Soda - Recreational Drug Use Recreational Drug Use: No ED ROS GENERAL - Review of Systems Review Of Systems: ROS reveals no pertinent complaints other than HPI. ED EXAM, GENERAL - Physical Exam Exam: See Below (see dictation) Course - Vital Signs Last Recorded V/S: Last Vital Signs Temp 36.3 C 11/07/18 18:11 Pulse 79 11/07/18 19:46 Resp 18 11/07/18 19:46 BP 137/87 11/07/18 19:46 Pulse Ox 99 11/07/18 19:46 Orthostatic Blood Pressure [ 127/88 Standing] Orthostatic Blood Pressure [ 124/84 Sitting] Orthostatic Blood Pressure [ 124/83 Supine] - Orders/Labs/Meds Orders: Active Orders 24 hr Category Date Time Status Cardiac Monitoring [RC] . DIRECTED Care 11/07/18 18:15 Active EKG Documentation Completion [RC] STAT Care 11/07/18 18:16 Active Orthostatic Vital Signs [RC] ASDIRECTED Care 11/07/18 18:16 Active RT Aerosol Therapy [RC] ASDIRECTED Care 11/07/18 18:17 Active Labs: Laboratory Tests 11/07/18 11/07/18 Range/Units 18:30 18:30 WBC 3.50 L (4.0-11.0) K/uL RBC 5.37 (4.50-5.90) M/uL Hgb 16.2 (13.0-17.0) g/dL Hct 46.8 (38.0-50.0) % MCV 87.2 (80.0-98.0) fL MCH 30.2 (27.0-32.0) pg MCHC 34.6 (31.0-37.0) g/dL RDW Std Deviation 42.7 (28.0-62.0) fl RDW Coeff of Naga 13 (11.0-15.0) % Plt Count 196 (150-400) K/uL MPV 9.90 (7.40-12.00) fL Neut % (Auto) 44.5 L (48.0-80.0) % Lymph % (Auto) 40.0 (16.0-40.0) % Storey % (Auto) 14.0 (0.0-15.0) % Eos % (Auto) 0.9 (0.0-7.0) % Baso % (Auto) 0.6 (0.0-1.5) % Neut # (Auto) 1.6 (1.4-5.7) K/uL Lymph # (Auto) 1.4 (0.6-2.4) K/uL Storey # (Auto) 0.5 (0.0-0.8) K/uL Eos # (Auto) 0.0 (0.0-0.7) K/uL Baso # (Auto) 0.0 (0.0-0.1) K/uL Nucleated RBC % 0.0 /100WBC Nucleated RBCs # 0 K/uL Sodium 143 (136-148) mmol/L Potassium 3.6 (3.5-5.1) mmol/L Chloride 107 (98-107) mmol/L Carbon Dioxide 22.2 (21.0-32.0) mmol/L BUN 14 (7.0-18.0) mg/dL Creatinine 1.1 (0.8-1.3) mg/dL Est Cr Clr Drug Dosing 80.34 mL/min Estimated GFR (MDRD) > 60.0 ml/min Glucose 99 (74-106) mg/dL Calcium 8.9 (8.5-10.1) mg/dL Total Bilirubin 0.3 (0.2-1.0) mg/dL AST 17 (15-37) IU/L ALT 24 (14-63) IU/L Alkaline Phosphatase 50 (46-116) U/L Troponin I < 0.050 (0.000-0.056) ng/mL Total Protein 7.5 (6.4-8.2) g/dL Albumin 3.6 (3.4-5.0) g/dL Globulin 3.9 (2.6-4.0) g/dL Albumin/Globulin Ratio 0.9 (0.9-1.6) Lipase 123 (73-393) U/L Meds: Medications Discontinued Medications Generic Name Dose Route Start Last Admin Trade Name Emiliano PRN Reason Stop Dose Admin Albuterol/Ipratropium 3 ml 11/07/18 18:17 11/07/18 18:26 Duoneb 3.0-0.5 Mg/3 Ml NEB 11/07/18 18:18 3 ml ONETIME ONE Administration Aspirin 324 mg 11/07/18 18:15 11/07/18 18:31 Aspirin PO 11/07/18 18:16 324 mg ONETIME ONE Administration Sodium Chloride 1,000 mls @ 999 mls/hr 11/07/18 18:15 11/07/18 18:31 Normal Saline IV 11/07/18 19:15 999 mls/hr BOLUS ONE Administration Departure - Departure Time of Disposition: 19:29 Disposition: Home, Self-Care 01 Clinical Impression: Bronchitis Instructions: Acute Bronchitis, Adult Referrals: PCP,None [Primary Care Provider] - Forms: ED Department Discharge Additional Instructions: The following information is given to patients seen in the emergency department who are being discharged to home. This information is to outline your options for follow-up care. We provide all patients seen in our emergency department with a follow-up referral. The need for follow-up, as well as the timing and circumstances, are variable depending upon the specifics of your emergency department visit. If you don't have a primary care physician on staff, we will provide you with a referral. We always advise you to contact your personal physician following an emergency department visit to inform them of the circumstance of the visit and for follow-up with them and/or the need for any referrals to a consulting specialist. The emergency department will also refer you to a specialist when appropriate. This referral assures that you have the opportunity for follow-up care with a specialist. All of these measure are taken in an effort to provide you with optimal care, which includes your follow-up. Under all circumstances we always encourage you to contact your private physician who remains a resource for coordinating your care. When calling for follow-up care, please make the office aware that this follow-up is from your recent emergency room visit. If for any reason you are refused follow-up, please contact the [facility] Emergency Department at and asked to speak to the emergency department charge nurse. [facility] Primary Care [address] [place] [address] [facility] [address] [place] [id number] 1. Take medications as prescribed. You can alternate ibuprofen and Tylenol as directed for pain and discomfort. 2. Follow-up with your primary care provider as discussed. 3. Return to the ED as needed and as discussed. - My Orders Last 24 Hours: My Active Orders 11/07/18 18:15 Cardiac Monitoring [RC] . DIRECTED 11/07/18 18:16 EKG Documentation Completion [RC] STAT Orthostatic Vital Signs [RC] ASDIRECTED 11/07/18 18:17 RT Aerosol Therapy [RC] ASDIRECTED - Assessment/Plan Last 24 Hours: My Active Orders 11/07/18 18:15 Cardiac Monitoring [RC] . DIRECTED 11/07/18 18:16 EKG Documentation Completion [RC] STAT Orthostatic Vital Signs [RC] ASDIRECTED 11/07/18 18:17 RT Aerosol Therapy [RC] ASDIRECTED
[2018-11-07 19:08] LABS: CHLORIDE,CL 107 mmol/L (98-107); SODIUM,NA 143 mmol/L (136-148)
--- NOTE | 2018-11-07 19:13 | CR ---
INDICATION: Shortness of breath TECHNIQUE: Chest 1 views COMPARISON: Chest x-ray 02/16/2017 FINDINGS: Cardiovascular and mediastinum: Normal heart size with mild aortic tortuosity. Lungs and pleural spaces: Mild elevation of the right hemidiaphragm, specially laterally, appearance would favor pleural thickening. No focal consolidation. Bones and soft tissues: No significant findings. IMPRESSION: Right pleural thickening without acute pulmonary consolidation. Dictated by Dov Reyes MD @ Nov 07 2018 7:03PM Signed by Dr. Dov Reyes @ Nov 07 2018 7:11PM
[2018-11-07 19:47] VITALS: BP 137/87
== END 2018-11-07 19:47 | disposition home or self-care (01) ==
LOC: MW.ED 18:09
DX: J40 Bronchitis, not specified as acute or chronic (principal); Z79.899 Other long term (current) drug therapy
CPT/HCPCS: 36415; 71045; 80053; 83690; 84484; 85025; 87804; 93005; 94640; 96360; 99285; A9270; J7040; 99283; J7620-GY